=== PATIENT | male | born 1980 | race African-American/Black ===

== ENCOUNTER 2016-12-13 20:23 | Inpatient (IN) | payer OTHER ==
--- NOTE | ~2016-12-13 | DS ---
Unit #: [id number] #: [id number] Patient: MORTEZA MORRIS [id number] [facility] [address] [place] [address] [id number] MR#: [id number] NAME: MORTEZA MORRIS ROOM: [facility] Age: 36 Sex: M Admission Date: 12/13/2016 : 1980 Discharge Date: 12/19/2016 Attending Physician: Vito Villeda M.D. Primary Care Physician: Primary Care Physician No DISCHARGE SUMMARY IDENTIFYING DATA Mr. [place] is a 36-year-old single male who is a resident of [place], [place] and is known to us from previous encounter and was brought to the hospital by his family. DISCHARGE DIAGNOSES Psychiatric: Schizoaffective disorder, bipolar type, most recent episode manic with psychosis. Medical: None. Stressors: Moderate psychosocial stressors. HISTORY OF PRESENT ILLNESS Please see initial psychiatric evaluation for details. PAST PSYCHIATRIC HISTORY Please see initial psychiatric evaluation for details. PAST MEDICAL HISTORY Please see initial psychiatric evaluation for details. HOSPITAL COURSE The patient was admitted to the adult psychiatric unit at [facility] [place] and was oriented to the hospital environment. Routine p.r.n. medications were initiated, and he was started back on his home medications and upon initial presentation, the patient was seen to be acutely psychotic, agitated, irritable, hostile, and has been off his medication and as such, medications were reinstated and Risperdal and Celexa were started in combination and was closely monitored. He was taking the medications regularly and was tolerating them fairly well and was able to show a decent therapeutic response, and as such, it was decided that he will be discharged home and will continue treatment on an outpatient basis. DISCHARGE MEDICATIONS Risperdal 2 mg b.i.d. for psychosis and Celexa 20 mg a day for depression. DISCHARGE CONDITION Stable. PROGNOSIS Fair. Dictated by... Unit #: [id number] #: [id number] Patient: MORTEZA MORRIS Gray Cannon/elishal TD: 12/19/2016 07:05 JOB #: [id number] DISCHARGE SUMMARY Page 1 of 1 X Vito Villeda MD SUMMARY
--- NOTE | ~2016-12-13 | PA ---
Unit #: [id number] #: [id number] Patient: MORTEZA MORRIS [id number] [facility] [address] [place] [address] [id number] I MR#: [id number] NAME: MORTEZA MORRIS ROOM: P130 Age: 36 Sex: M Admission Date: 12/13/2016 : 1980 Date of Assessment: 12/14/2016 Attending Physician: Vito Villeda M.D. Admitting Physician: Vito Villeda M.D. Primary Care Physician: Primary Care Physician No PSYCHIATRIC ASSESSMENT DATE OF SERVICE 12/14/2016. IDENTIFYING DATA Mr. [place] is a 36-year-old single male, who is a resident of [place], [place], and is known to us from previous encounter, and was brought to the hospital accompanied by his family members. CHIEF COMPLAINT "Not taking my medicines." HISTORY OF PRESENT ILLNESS Mr. [place] is a 36-year-old male, who was brought to the hospital by his family and the patient reported that he feels good today and he was disoriented and not oriented to time or day and was exhibiting some acute confusion and rosemarie like symptoms and reports that he has not been taking his medications and was seen to be acutely psychotic with labile mood and unable to follow directions or conversations and cousin who brought him reported that the patient has been having some acute delusional thoughts and that he believes that he is mentally in condo, [address] hidden, and running in and out of traffic and mother tries to take care of him, but he gets agitated easily and family is concerned that he is talking to himself and he is disoriented and he is homeless and has been flagging down traffic, walking around with a leather coat in 90 degrees weather and has not been able to work due to his condition and he is on disability due to being legally blind and has been having some acute mental status changes and was completely out of touch with reality and with significant paranoia and delusional behavior and running into traffics and as such, has been reporting significant threat to himself and others and therefore, recommendation for inpatient level of care for safety and stabilization was made. SUBSTANCE ABUSE HISTORY The patient reports history of experimentation with alcohol and cannabis, but denies any ongoing substance abuse issues. PAST PSYCHIATRIC HISTORY The patient has had history of 2 prior inpatient psychiatric hospitalizations at [facility] and review of the medical records indicate that he has been diagnosed and treated for schizoaffective bipolar type and he is supposed to be on Risperdal and Celexa, but has been noncompliant with medication and as such, has been decompensating. Unit #: [id number] #: [id number] Patient: MORTEZA MORRIS PAST MEDICAL HISTORY The patient's medical history is insignificant. ALLERGIES Motrin. PERSONAL AND SOCIAL HISTORY A 36-year-old male, who reports that he is single, unemployed, and essentially homeless and has poor social support system. MENTAL STATUS EXAMINATION Young male who was casually dressed with fair personal hygiene, appears to be in no acute distress or discomfort. He was awake and alert on interaction with intact orientation. His mood was anxious and depressed with a congruent affect. His speech was slow and restricted in content. His thought processes were disorganized with some looseness of associations and flight of ideas and paranoid ideations and delusional behavior. His insight and judgment remain significantly impaired. DIAGNOSTIC IMPRESSION Psychiatric: Schizoaffective disorder, bipolar type, most recent episode manic with psychosis. Medical: None. Stressors: Moderate psychosocial stressors. TREATMENT PLAN 1. The patient has presented with a history of substance abuse and mood disorder, and has been decompensating and will need inpatient hospitalization for safety and stabilization. We will start him back on his home medications. We will adjust the medications and monitor response. 2. Supportive therapy was provided to the patient. ESTIMATED LENGTH OF STAY 5 to 7 days. ABILITY TO HELP SELF Limited. WILLINGNESS TO HELP SELF The patient appears to be willing to help self. STRENGTHS 1. Communicative. 2. Cooperative. PROBLEMS 1. Chronic dysphoric symptoms. 2. Poor social support system. DISCHARGE CRITERIA This will be contingent upon the patient's ability to show resolution of his rosemarie and psychosis and his ability to stay safe to himself, particularly after discharge from the hospital. Dictated by... Vito Villeda M.D. Unit #: [id number] #: [id number] Patient: MORTEZA MORRIS IAA/modl TD: 12/14/2016 07:31 JOB #: [id number] PSYCHIATRIC ASSESSMENT Page 1 of 1 X Vito Villeda MD PSYCHIATRIC ASSESSMENT
--- NOTE | ~2016-12-13 | PN ---
Unit #: [id number] #: [id number] Patient: MORTEZA MORRIS [id number] [facility] [address] [place] [address] [id number] I MR#: [id number] NAME: MORTEZA MORRIS ROOM: 32 Age: 36 Sex: M Admission Date: 12/13/2016 : 1980 Attending Physician: Vito Villeda M.D. Admitting Physician: Vito Villeda M.D. Primary Care Physician: Primary Care Physician Iveth MCQUEEN NOTES DATE December 16, 2016 DISCUSSION Mr. [place] is a 36-year-old male, with mood disorder and psychosis, who was seen today and chart was reviewed and the case was discussed with the staff. He remains anxious, withdrawn, unkept, disheveled, disorganized and unable to carry on any meaningful conversation. He was hostile and belligerent, and appears to be out of touch with reality with persistent paranoia and delusional behavior. MENTAL STATUS EXAMINATION Young male, who was casually dressed with poor personal hygiene and appears to be in no acute distress or discomfort. He was awake and alert with impaired attention and concentration. His mood is anxious with a congruent affect. His speech is slow and tangential. His thought processes are disorganized with some looseness of associations and flight of ideas, and paranoid ideations, and delusional behavior. His insight and judgment remain significantly impaired. TREATMENT PLAN 1. We will continue him on his current medications and treatment protocol, and will monitor his response to the medications, and make further adjustments as needed. 2. We will continue to followup. Dictated by... Gray Cannon/kelvin TD: 12/18/2016 07:58 JOB #: [id number] Unit #: [id number] #: [id number] Patient: MORTEZA MORRIS PROGRESS NOTES Page 1 of 1 X Vito Villeda MD PROGRESS NOTE
--- NOTE | ~2016-12-13 | HP ---
Unit #: [id number] #: [id number] Patient: MORTEZA GAMEZ [id number] [place] [address] [id number] I MR#: [id number] NAME: MORTEZA GAMEZ ROOM: P130 Age: 36 Sex: M Admission Date: 12/13/2016 : 1980 Attending Physician: Vito Villeda M.D. Admitting Physician: Vito Villeda M.D. Primary Care Physician: Primary Care Physician No HISTORY AND PHYSICAL HISTORY OF PRESENT ILLNESS Morteza is a 36 year old admitted to [address] [place] [address] because of his continued abuse of alcohol. PAST MEDICAL HISTORY 1. Long history of alcohol abuse. 2. History of psychosis. 3. Obesity. PAST SURGICAL HISTORY Nothing reported. ALLERGIES Ibuprofen. SOCIAL HISTORY Smokes 2 packs per day. Drinks alcohol on occasion and denies illicit drug use. FAMILY HISTORY Medically noncontributory. REVIEW OF SYSTEMS CONSTITUTIONAL: No fever or chills. HEENT: Denies any sore throat, ear pain or runny nose. CARDIOVASCULAR: Denies chest pain, irregular heart rhythm or palpitations. CHEST: Denies shortness of breath or cough. No hemoptysis. GASTROINTESTINAL: Denies nausea, vomiting, diarrhea or chronic constipation. ENDOCRINE: Denies history of increased thirst or urination. No recent significant weight loss or gain. GENITOURINARY: Denies dysuria, frequency, or hematuria. SKIN: Denies any rashes. HEMATOLOGIC: Denies history of increased bleeding or bruising. MUSCULOSKELETAL: Denies any hot, swollen joints. No generalized muscle pain. NEUROLOGIC: Denies problems with vision or speech. No frequent, severe headaches. No numbness, tingling or weakness in any extremities. Denies loss of bladder or bowel control. CURRENT MEDICATIONS 1. Nicotine patch 14 mg daily. 2. Risperdal 2 mg b.i.d. Unit #: [id number] #: [id number] Patient: MORTEZA GAMEZ 3. Celexa 20 mg daily. 4. Milk of Magnesia p.r.n. 5. Maalox p.r.n. 6. Tylenol p.r.n. PHYSICAL EXAMINATION GENERAL: Alert, well-nourished, in no apparent distress. VITAL SIGNS: Blood pressure 136/80, heart rate 80, respirations 16, temperature 98.6. SKIN: Warm and dry without rash or lesion. HEENT: Normocephalic. TMs not viewed. Oral and nasal passages clear. Conjunctivae clear. PERRLA. EOMs intact. NECK: Supple without lymphadenopathy or thyromegaly. HEART: Regular rate and rhythm without murmur. LUNGS: Clear. ABDOMEN: Soft, nontender. : Not done. EXTREMITIES: No evidence of cyanosis, clubbing or edema. Moves all without focal deficit. NEUROLOGICAL: Grossly within normal limits. Cranial Nerves: II: Visual navarro are intact. III, IV AND : Extraocular movements are intact. Pupils are equal, round and reactive to light. V: Facial sensation is grossly normal. VII: Facial movements and expression are normal. VIII: Auditory acuity grossly intact. IX, X: Uvula is midline. Phonation is normal. XI: Patient shrugs shoulders and turns head normally. XII: Tongue protrudes in the midline. Sensory and Motor Function: Sensory and motor sensation is grossly normal. Motor: moves all extremities well. Coordination: Gait is normal. Deep Tendon Reflexes: Intact. IMPRESSION Psychiatric admission. RECOMMENDATIONS PSYCHIATRIC: Per psychiatrist. MEDICAL: See no contraindications to participate in facility's activities. MEDICAL PROGNOSIS Good. MEDICAL CONDITION Stable. Dictated by... Belen AmosAZee. for Gray Mandel/emily TD: 12/14/2016 21:09 JOB #: [id number] Unit #: [id number] #: [id number] Patient: MORTEZA GAMEZ HISTORY AND PHYSICAL Page 1 of 1 X Shannen Ventura HISTORY AND PHYSICAL
--- NOTE | ~2016-12-13 | PN ---
Unit #: [id number] #: [id number] Patient: MORTEZA MORRIS [id number] [facility] [address] [place] [address] [id number] I MR#: [id number] NAME: MORTEZA MORRIS ROOM: 32 Age: 36 Sex: M Admission Date: 12/13/2016 : 1980 Attending Physician: Vito Villeda M.D. Admitting Physician: Vito Villeda M.D. Primary Care Physician: Primary Care Physician Iveth MATTA PROGRESS NOTES DATE 12/15/2016 DISCUSSION Mr. [place] is a 36-year-old, male who was seen today and chart was reviewed and case was discussed with the staff. He remains acutely psychotic, agitated and irritable and aggressive using verbally abusive language and was seen to be unkempt disheveled has not been taking care of personal hygiene and appears to be completely out of touch with reality and unable to carry on any meaningful conversation to be redirected and (1) then he starts using profanity and has been seen to be showing poor frustration tolerance. MENTAL STATUS EXAM Young male who was casually dressed with fair personal hygiene, appears to be in no acute distress or discomfort. He was awake and alert with impaired attention to concentration was seen to be confused and anxious and restless. His speech was pressured and tangential. His thought process was disorganized with some looseness of associations and flight of ideas and paranoid ideations and delusional behavior. His insight and judgement remains significantly impaired. TREATMENT PLAN 1. We will continue him on his current medications and treatment protocol. We will monitor his response to the medications and make further adjustments as needed. 2. We will continue to follow up. Dictated by... Gray Cannon/juli TD: 12/18/2016 02:23 JOB #: [id number] Unit #: [id number] #: [id number] Patient: MORTEZA MORRIS PEAIBETH PROGRESS NOTES Page 1 of 1 X Ronal,Vito Doshi MD X PROGRESS NOTE
--- NOTE | ~2016-12-13 | PN ---
Unit #: [id number] #: [id number] Patient: MORTEZA MORRIS [id number] [facility] [address] [place] [address] [id number] I MR#: [id number] NAME: MORTEZA MORRIS ROOM: 32 Age: 36 Sex: M Admission Date: 12/13/2016 : 1980 Attending Physician: Vito Villeda M.D. Admitting Physician: Vito Villeda M.D. Primary Care Physician: Iveth Primary Care Physician PAXTON PROGRESS NOTES DATE 12/17/2016 DISCUSSION Mr. [place] is a 36-year-old male, with mood disorder and psychosis, who was seen today and chart was reviewed and the case was discussed with the staff. He remains anxious, withdrawn, seclusive to himself, bizarre behavior and disorganized thoughts (1) speaking. (2) treatment and medication and tolerating them fairly well with no reported side effects. MENTAL STATUS EXAMINATION Young male, who was casually dressed with fair personal hygiene and appears to be in no acute distress or discomfort. He was awake and alert with impaired attention and concentration. Mood is anxious with a congruent affect. He denies any suicidal or homicidal ideation. His insight and judgment remain significantly impaired. TREATMENT PLAN 1. We will continue him on his current medications and treatment protocol, and will monitor his response to the medications, and make further adjustments as needed. 2. We will continue followup. Dictated by... Gray Cannon/susy TD: 12/18/2016 11:17 JOB #: [id number] Unit #: [id number] #: [id number] Patient: MORTEZA MORRIS PEAIBETH PROGRESS NOTES Page 1 of 1 X Vito Villeda MD PROGRESS NOTE
--- NOTE | ~2016-12-13 | PN ---
Unit #: [id number] #: [id number] Patient: MORTEZA MORRIS [id number] [facility] [address] [place] [address] [id number] I MR#: [id number] NAME: MORTEZA MORRIS ROOM: 32 Age: 36 Sex: M Admission Date: 12/13/2016 : 1980 Attending Physician: Vito Villeda M.D. Admitting Physician: Vito Villeda M.D. Primary Care Physician: Iveth Primary Care Physician PAXTON PROGRESS NOTES DATE 12/18/2016 DISCUSSION Mr. [place] is a 36-year-old male, who was seen today and chart reviewed and the case was discussed with the staff. He remains anxious, withdrawn, disorganized, but not showing agitation or irritability and has been cooperative with treatment recommendation. He does appear to be (1) . MENTAL STATUS EXAMINATION Young male, who was casually dressed with marginal personal hygiene and appears to be in no acute distress or discomfort. He was awake and alert with impaired attention and concentration. His mood is anxious with a congruent affect. His speech is slow and tangential. His thought processes are disorganized with some looseness of associations and flight of ideas. His insight and judgment remain significantly impaired. TREATMENT PLAN 1. Continue his current treatment protocol, and will monitor his response to the medications, and make further adjustments as needed. 2. We will continue with (2) . Dictated by... Gray Cannon/susy TD: 12/18/2016 11:50 JOB #: [id number] Unit #: [id number] #: [id number] Patient: MORTEZA MORRIS PEAIBETH PROGRESS NOTES Page 1 of 1 X Vito Villeda MD PROGRESS NOTE
[2016-12-14 12:50] LABS: BASOPHIL# 0.1 X10e3 (0-0.3); BASOPHIL% 1.3 % (0-2.5); EOSINOPHIL# 0.2 X10e3 (0-0.7); EOSINOPHIL% 3.7 % (0.0-7.0); HEMATOCRIT 40.8 % (38.0-50.0); HEMOGLOBIN 13.1 gm/dL (13.0-16.0); LYMPHOCYTE# 1.9 X10e3 (1.0-3.5); LYMPHOCYTE% 29.6 % (17.0-45.0); MEAN CELL VOLUME 89.7 FL (83-96); MEAN CORPUSCULAR HEMOGLOBIN 28.9 PG (28-34); MEAN CORPUSCULAR HGB CONC 32.2 g/dL (30-36); MEAN PLATELET VOLUME 8.2 FL (6.5-11.5); MONOCYTE# 0.5 X10e3 (0-1.0); MONOCYTE% 8.2 % (3.0-12.0); NEUTROPHIL# 3.6 X10e3 (1.5-7.1); NEUTROPHIL% 57.2 % (40-75); PLATELET COUNT 314 X10e3 (140-420); RED BLOOD COUNT 4.55 X10e (3.90-5.60); WHITE BLOOD COUNT 6.3 X10e3 (4.0-10.5)
[2016-12-14 12:51] LABS: DIFF IND YES
[2016-12-14 12:59] LABS: ALBUMIN SERUM 3.5 g/dL (3.5-5.0); BILIRUBIN,TOTAL 0.3 mg/dL (0.2-2.0); BUN/CREATININE RATIO 13.33; CALCIUM SERUM 8.6 mg/dL (8.4-10.2); CREATININE SERUM 0.9 mg/dL (0.6-1.4); POTASSIUM 3.8 mmol/L (3.5-5.1); PROTEIN TOTAL SERUM 5.9 g/dL (6.0-8.3)
[2016-12-14 13:23] LABS: ANISOCYTOSIS SL; PLATELET ESTIMATE NORMAL (NORMAL); RBC NORMAL YES
[2016-12-19 09:43] LABS: URINE APPEARANCE CLEAR; URINE BILIRUBIN NEG (NEG); URINE BLOOD NEG (NEG); URINE COLOR YELLOW; URINE GLUCOSE NEG (NEG); URINE KETONE NEG (NEG); URINE LEUKOCYTE ESTERASE NEG (NEG); URINE NITRATE NEG (NEG); URINE PH 7.5 (5-8); URINE PROTEIN NEG (NEG); URINE SPECIFIC GRAVITY 1.009 (1.003-1.035); URINE UROBILINOGEN 0.2 MG/DL (NEG)
[2016-12-19 11:22] LABS: AMPHETAMINE NEG (NEG); BARBITURATES NEG (NEG); BENZODIAZEPINES NEG (NEG); COCAINE NEG (NEG); MARIJUANA NEG (NEG); OPIATES NEG (NEG); TRICYCLIC ANTIDEPRESSANTS NEG (NEG); U METHADONE NEG (NEG)
== END 2016-12-19 11:00 | disposition home or self-care (01) | DRG 885 ==
LOC: P1S 22:57
PROVIDERS: Psychiatry & Neurology Psychiatry
DX: F25.0 Schizoaffective disorder, bipolar type (principal); F31.2 Bipolar disorder, current episode manic severe with psychotic features; Z59.0 Homelessness; E66.9 Obesity, unspecified; F17.210 Nicotine dependence, cigarettes, uncomplicated; Z88.6 Allergy status to analgesic agent
CPT/HCPCS: 80053; 80307; 81003; 85025